=== PATIENT | male | born 1970 | race Caucasian/White ===

== ENCOUNTER 2021-01-14 11:11 | Emergency (ER) | payer OTHER, SELFPAY ==
--- NOTE | ~2021-01-14 | XR_ITS ---
EXAMINATION: XR chest 2V EXAM DATE: 01/14/2021 12:09 INDICATION: Cough, sob X 3 weeks. TECHNIQUE: Frontal and lateral projections of the chest obtained and reviewed. Comparison is made to prior examination from 06/23/2013. FINDINGS: Moderate hyperinflation. The lungs are clear. There are no pleural effusions. The cardiom ediastinal silhouette is within normal limits. There is no pneumothorax suspected. Patient has lowe r thoracic diffuse idiopathic skeletal hyperostosis (DISH). IMPRESSION: 1. No acute cardiopulmonary findings. 2. Hyperinflation. Reviewed, dictated and finalized at location A.
[2021-01-14 11:30] VITALS: BP 151/99; PULSE 79; RESP 16; TEMP 36.9; O2SAT 98
--- NOTE | 2021-01-14 12:27 | ED.URI ---
HPI - URI/Sore Throat General Source: patient Mode of arrival: ambulatory Limitations: no limitations History of Present Illness HPI Narrative: Patient comes in with a sore thropat for the last 2 weeks, a cough and mild shortness of breath ongoing for the past few days. He is most concerned about the cough, as it has been an aggravation. He denies fever and chills. He denies productive cough and chest pain. He works as a [employer], cough has not been known to be associated with any known exposure to toxin or allergen. Measures at home have not made this better. MD elicited complaint: cough, sore throat and nasal congestion Pertinent past history: pneumonia Onset (ago): week(s) Consistency: intermittent Severity: mild Description of mucous: other (minimal ) Exacerbating factors: exertion Relieving factors: rest Associated symptoms: denies other symptoms Treatments prior to arrival: acetaminophen and ibuprofen Related Data Allergies Allergy/AdvReac Type Severity Reaction Status Date / Time No Known Allergies Allergy Mild Unverified 03/04/10 12:26 Review of Systems Constitutional: Constitutional: Reports no additional constitutional complaints Eyes: Eyes: Reports no additional eye complaints ENT: Reports system reviewed and no additional complaints, except as documented, Reports nasal congestion and Reports sore throat Cardiovascular: Cardiovascular: Reports no additional cardiovascular complaints Respiratory: Respiratory: Reports no additional respiratory complaints Gastrointestinal: Gastrointestinal: Reports no additional gastrointestinal complaints Genitourinary: Genitourinary: Reports no additional male genitourinary complaints Musculoskeletal: Musculoskeletal: Reports no additional musculoskeletal complaints Integumentary/Breasts: Skin/Breast: Reports system reviewed and no additional complaints, except as docu Neurologic: Reports system reviewed and no additional complaints, except as documented Psychiatric: Psychiatric: Reports no additional psychiatric complaints Endocrine: Endocrine: Reports no additional endocrine complaints Hematologic/Lymphatic: Hematologic/Lymphatic: Reports no additional hematologic/lymphatic complaints Allergic/Immunologic: Allergic/Immunologic: Reports no additional allergic/immunologic complaints [facility] Past Medical History Medical History (Updated 01/14/21 @ 20:36 by Adrian Rosado MD) COPD (chronic obstructive pulmonary disease) Polyp in nasopharynx Polyp of left nasal cavity Surgical History Surgical History (Updated 01/14/21 @ 20:36 by Adrian Rosado MD) H/O knee surgery Family History Family History (Updated 01/14/21 @ 20:36 by Adrian Rosado MD) Father CAD (coronary artery disease) Social History Social History (Updated 01/14/21 @ 20:37 by Adrian Rosado MD) Smoking packs per day: 2 Smoking cigarettes per day: 40.0 Smoking status: Current every day smoker Tobacco type: cigarettes Alcohol intake: current Alcohol use details: 6-8 beers a night Exam Const: General: healthy appearing, no acute distress and alert Orientation/consciousness: patient oriented x3 HENMT: Head: normal to inspection Ears: external ears normal General nose exam: Normal external nose present and Normal nares present Mouth: Yes Normal oral and palatal mucosa present Other: pharynx has mild erythema, with appearance of viral pharyngitis Eyes: Conjunctivae: conjunctivae normal Neck: Neck: normal visual inspection Chest: Chest palpation & inspection: normal inspection of the chest Resp: Effort & Inspection: normal respiratory effort Auscultation: clear to auscultation bilaterally Cardio: Rate: regular rate Rhythm: regular rhythm GI: GI Palp: Yes Soft to palpation (non tender) Skin: General skin exam: normal color Neuro: General: patient oriented x3 and moves all extremities Extrem: General: normal to inspection Psych: Appearance: grossly norm
[2021-01-14 12:34] VITALS: PULSE 80; RESP 14; O2SAT 98
== END 2021-01-14 12:35 | disposition home or self-care (01) ==
PROVIDERS: Emergency Provider Emergency Medicine; PCP Internal Medicine
DX: J44.1 Chronic obstructive pulmonary disease with (acute) exacerbation (principal)
CPT/HCPCS: 71046; 99283